=== PATIENT | male | born 1955 | race Caucasian/White ===

== ENCOUNTER → 2023-05-26 15:12 | Outpatient (CLI) | payer MEDICARE, SELFPAY ==
--- NOTE | ~2023-05-26 | CT_ITS ---
EXAMINATION: CT lung screening DATE: 05/26/2023 15:38 INDICATION: tobacco use TECHNIQUE: Computed tomography (CT) of the chest was performed without intravenous contrast. Addition al 3D reconstructions utilizing coronal maximum intensity projection (MIP) were performed. Automated exposure control and iterative reconstruction technique were employed. The dose-length product was 15 4.18 mGy-cm. COMPARISON: None FINDINGS: Mild to moderate upper lung predominant emphysema. 3 mm noncalcified nodule in the right upper lobe. Small calcified nodules in the right lower lobe along with calcified bilateral hilar, mediastinal and periportal lymph nodes and a few scattered hepatic and splenic calcifications are all consistent wit h old granulomatous disease. No other pulmonary nodules, pneumonia, pulmonary edema or pleural effusi on. Heart size is normal. No pericardial effusion. Thoracic aorta is normal in caliber. No pathologic ally enlarged thoracic lymphadenopathy. 3.5 cm right renal cyst. Moderate thoracic spondylosis. Chron ic mild anterior wedging at L1. IMPRESSION: 1. Lung-RADS category 2: Benign appearance or behavior. Continue annual screening with noncontrast lo w-dose chest CT in 12 months. Reviewed, dictated and finalized at location A. IMPRESSION: 1. Lung-RADS category 2: Benign appearance or behavior. Continue annual screeni ng with noncontrast low-dose chest CT in 12 months.
== END ==
PROVIDERS: PCP Family Medicine; Visit Provider Family Medicine
DX: Z12.2 Encounter for screening for malignant neoplasm of respiratory organs (principal); Z87.891 Personal history of nicotine dependence
CPT/HCPCS: 71271